=== PATIENT | female | born 1975 | race Hispanic/Latino ===

== ENCOUNTER 2017-03-30 10:43 | Inpatient (IN) | payer BC, OTHER ==
[2017-03-30] MEDS ORDERED: Penicillin G Potassium 5 MU in Sodium Chloride 0.9% 50 ML IVPB ONE (11:15)
[2017-03-30 11:17] VITALS: BMI 29.9
[2017-03-30] MEDS ORDERED: Penicillin G 5 Million Unit Vial IVPB ONE (11:26)
[2017-03-30] MEDS ORDERED: Oxytocin 30 units/LR 500ML 30 U/500 ML BAG IV ONE (11:30)
[2017-03-30] MEDS ORDERED: Lactated Ringer's 1,000 ML IV SCH (11:30)
[2017-03-30 11:38] LABS: BASO # 0.1 K/uL (0.0-0.2); BASO % 1.5 % (0.0-2.0); EOS % 0.4 % (0.0-4.0); HEMATOCRIT 32.4 % (34.0-47.0); LYMPH # 2.5 K/uL (1.0-4.3); MEAN CELL VOLUME 75.6 fl (81.0-99.0); MEAN CORPUSCULAR HEMOGLOBIN 24.1 pg (27.0-31.0); MEAN CORPUSCULAR HGB CONC 31.9 g/dL (33.0-37.0); MEAN PLATELET VOLUME 8.8 fl (7.2-11.7); MONO # 0.5 K/uL (0.0-0.8); MONO % 7.2 % (0.0-10.0); NEUT # 4.3 K/uL (1.8-7.0); NEUT % 57.9 % (50.0-75.0); NRBC % 0.1 % (0.0-0.0); RED CELL DISTRIBUTION WIDTH 16.4 % (11.5-14.5); WHITE BLOOD COUNT 7.5 K/uL (4.8-10.8)
[2017-03-30] MEDS ORDERED: Benzocaine/Menthol SPRAY TOP PRN (11:42)
[2017-03-30] MEDS ORDERED: Oxycodone/Acetaminophen 5/325 mg Tab PO PRN (11:42)
[2017-03-30 12:31] VITALS: RESP 18
--- NOTE | 2017-03-30 19:52 | OBADHP ---
Datetime: 03/30/2017 11:15 Admit Comment, IP Provider: IUP at term c/o CXT since 8am. No SROM. no VB. +FM PNC: Dr MENCHACA - chart rev'd GBS+ AMA - amnio normal PMH: matias PSH denies POBH: Spont ab x 1; 4th degree PGYNH: denie STD PSoH: debiues smoking ETHOH drugs A; IUP at term second stage of labor GBS+ AMA PLAN: admit to L_D IV PCN Observe labor progress Pelvic Type - PN: Adequate Extremities - PN: Normal Abdomen - PN: Normal Back - PN: Normal Breast - PN: Not Done Lungs - PN: Normal Heart - PN: Normal Thyroid - PN: Normal Neurologic - PN: Normal HEENT - PN: Normal General - PN: Normal Presentation-Admit: Vertex Membranes, Provider: Intact Comments, ACOG Physical Exam: qROS: General: no weakness; no fatigue HEENT: no LEE; no visual dist CV: no palpitations; no no CP GI: no N/V no diarhea : no F/U/D MS: No joint pain Pool Provider: Negative IP Hx Assessment: The History has been Reviewed and is Current Vital Signs Provider: Reviewed; Within Normal Limits IP Chief Complaint: Uterine contractions FHR Category Provider Fetus A: Category II (Annotations: Data stored by CPN on behalf of user) NICHD Decel Fetus A IP Provider: Early Dilatation, Provider: 10 Effacement, Provider: 100 Station, Provider: 1 Genitourinary Exam: Normal DTRs - PN: Normal IP Adm Impression: Term, intrauterine ; Active labor; Intact Membranes IP Admit Plan: Admit to unit; Initiate labor protocol
--- NOTE | 2017-03-30 19:52 | OBDS ---
DELIVERY PERSONNEL Delivery Doctor: Francisco Morris DO Model Maker Plastic: Paula Gavin RN MATERNAL INFORMATION Delivery Anesthesia: None Medications in Delivery: Pitocin Estimated Blood Loss (ml): 250 Placenta Cultured: No Maternal Complications: None Provider Comments: Over intact perineum, of live . No laceratoin noted. PEDS called for delivery. IV PCN was being hung when she pushed. Infant was crying spontaneously. Infant was plac ed on her chest after cord clamped and cut. 9,9 Placenta delivreed intact spontaneously. EBL 200cc LABOR SUMMARY EDC: 03/25/2017 00:00 No. Babies in Womb: 1 Attempted: No Labor Anesthesia: None LABOR INFORMATION Reason for Induction: Not Applicable Onset of Labor: 03/30/2017 08:00 Onset of Labor: 03/30/2017 09:00 Complete Dilatation: 03/30/2017 11:00 Oxytocin: N/A Group B Beta Strep: Positive Antibiotics # of Doses: 0 Antibiotics Time of Last Dose: not gven Steroids Given: None Reason Steroids Not Administered: Not Applicable Other Reason Not Administered: Not required MEMBRANES Membranes Rupture Method: Spontaneous Membranes Rupture Method: Spontaneous Rupture of Membranes: 03/30/2017 11:25 Rupture of Membranes: 03/30/2017 11:25 Length of Rupture (hrs): 0.08 Amniotic Fluid Color: Clear Amniotic Fluid Color: Clear Amniotic Fluid Amount: Moderate Amniotic Fluid Amount: Small Amniotic Fluid Odor: Normal Amniotic Fluid Odor: Normal STAGES OF LABOR Stage 1 hrs: 3 Stage 1 min: 0 Stage 2 hrs: 0 Stage 2 min: 30 Stage 3 hrs: 0 Stage 3 min: 5 Total Time in Labor hrs: 3 Total Time in Labor min: 35 VAGINAL DELIVERY Episiotomy: None Laceration Extension: N/A Laceration Type: None Laceration Repair: No Initial Vag Sponge Count: 0 Final Vag Sponge Count: 5 Initial Vag Sharps Count: 0 Final Vag Sharps Count: 5 Sponge Count Correct: Yes Sharps Count Correct: N/A Count Comment: 5 lap pads BABY A INFORMATION Infant Delivery Date/Time: 03/30/2017 11:30 Method of Delivery: Vaginal Born in Route : No : N/A Forceps: N/A Vacuum Extraction: N/A Shoulder Dystocia : Yes SHOULDER DYSTOCIA BABY A Delivery Date/Time: 03/30/2017 11:30 PRESENTATION/POSITION BABY A Presentation: Cephalic Cephalic Presentation: Vertex Vertex Position: Left Occipital Anterior Breech Presentation: N/A PLACENTA INFORMATION BABY A Placenta Delivery Time : 03/30/2017 11:35 Placenta Method of Delivery: Spontaneous Placenta Status: Delivered SCORES BABY A Heart Rate 1 min: >100 bpm Resp Effort 1 min: Good Cry Reflex Irritability 1 min: Cough or Sneeze or Pulls Away Muscle Tone 1 min: Active Motion Color 1 min: Body Pas[place]em[place], Extremities Blue Resuscitation Effort 1 min: N/A SCORE 1 MIN: 9 Heart Rate 5 min: >100 bpm Resp Effort 5 min: Good Cry Reflex Irritability 5 min: Cough or Sneeze or Pulls Away Muscle Tone 5 min: Active Motion Color 5 min: Completely Pasatiempo Resuscitation Effort 5 min: N/A SCORE 5 MIN: 10 INFANT INFORMATION BABY A Gestational Age at Delivery: 40.0 Gestational Status: Term Infant Outcome : Liveborn Infant Condition : Stable Sex: Male WEIGHT/LENGTH BABY A Birthweight (gms): 3825 Infant Weight (lb): 8 Weight (oz): 7 Length Inches: 20.00 Length cms: 50.8 CORD INFORMATION BABY A No. Cord Vessels: 3 Nuchal Cord : N/A Cord Blood Taken: No Suction: Mouth ASSESSMENT BABY A Complications: None Physical Findings at Delivery: Within Normal Limits Infant Respirations: Appears Normal Medical Claims Representative/ALS Called : No Care By: Dr Tariq Transferred To: Remains with Mother
--- NOTE | 2017-03-30 19:52 | OBDS ---
DELIVERY [employer]ERSONNEL Delivery Doctor: Francisco Morris DO Processing Archivist: Paula Gavin RN MATERNAL INFORMATION Delivery Anesthesia: None Medications in Delivery: Pitocin Estimated Blood Loss (ml): 250 Placenta Cultured: No Maternal Complications: None Provider Comments: Over intact perineum, of live . No laceratoin noted. PEDS called for delivery. IV PCN was being hung when she pushed. Infant was crying spontaneously. Infant was plac ed on her chest after cord clamped and cut. 9,9 Placenta delivreed intact spontaneously. EBL 200cc LABOR SUMMARY EDC: 03/25/2017 00:00 No. Babies in Womb: 1 Attempted: No Labor Anesthesia: None LABOR INFORMATION Reason for Induction: Not Applicable Onset of Labor: 03/30/2017 09:00 Complete Dilatation: 03/30/2017 11:00 Oxytocin: N/A Group B Beta Strep: Positive Antibiotics # of Doses: 0 Antibiotics Time of Last Dose: not gven Steroids Given: None Reason Steroids Not Administered: Not Applicable Other Reason Not Administered: Not required MEMBRANES Membranes Rupture Method: Spontaneous Rupture of Membranes: 03/30/2017 11:25 Length of Rupture (hrs): 0.08 Amniotic Fluid Color: Clear Amniotic Fluid Amount: Small Amniotic Fluid Odor: Normal STAGES OF LABOR Stage 1 hrs: 3 Stage 1 min: 0 Stage 2 hrs: 0 Stage 2 min: 30 Stage 3 hrs: 0 Stage 3 min: 5 Total Time in Labor hrs: 3 Total Time in Labor min: 35 VAGINAL DELIVERY Episiotomy: None Laceration Extension: N/A Laceration Type: None Laceration Repair: No Initial Vag Sponge Count: 0 Final Vag Sponge Count: 5 Initial Vag Sharps Count: 0 Final Vag Sharps Count: 5 Sponge Count Correct: Yes Sharps Count Correct: N/A Count Comment: 5 lap pads BABY A INFORMATION Infant Delivery Date/Time: 03/30/2017 11:30 Method of Delivery: Vaginal Born in Route : No : N/A Forceps: N/A Vacuum Extraction: N/A Shoulder Dystocia : Yes SHOULDER DYSTOCIA BABY A Infant Delivery Date/Time: 03/30/2017 11:30 PRESENTATION/POSITION BABY A Presentation: Cephalic Cephalic Presentation: Vertex Vertex Position: Left Occipital Anterior Breech Presentation: N/A PLACENTA INFORMATION BABY A Placenta Delivery Time : 03/30/2017 11:35 Placenta Method of Delivery: Spontaneous Placenta Status: Delivered SCORES BABY A Heart Rate 1 min: >100 bpm Resp Effort 1 min: Good Cry Reflex Irritability 1 min: Cough or Sneeze or Pulls Away Muscle Tone 1 min: Active Motion Color 1 min: Body [place], Extremities Blue Resuscitation Effort 1 min: N/A SCORE 1 MIN: 9 Heart Rate 5 min: >100 bpm Resp Effort 5 min: Good Cry Reflex Irritability 5 min: Cough or Sneeze or Pulls Away Muscle Tone 5 min: Active Motion Color 5 min: Completely Dur[place] Resuscitation Effort 5 min: N/A SCORE 5 MIN: 10 INFANT INFORMATION BABY A Gestational Age at Delivery: 40.0 Gestational Status: Term Infant Outcome : Liveborn Infant Condition : Stable Sex: Male WEIGHT/LENGTH BABY A Birthweight (gms): 3825 Infant Weight (lb): 8 Infant Weight (oz): 7 Infant Length Inches: 20.00 Length cms: 50.8 CORD INFORMATION BABY A No. Cord Vessels: 3 Nuchal Cord : N/A Cord Blood Taken: No Infant Suction: Mouth ASSESSMENT BABY A Complications: None Physical Findings at Delivery: Within Normal Limits Respirations: Appears Normal Weatherization Administrator/ALS Called : No Care By: Dr Tariq Transferred To: Remains with Mother
[2017-03-31 06:11] LABS: HEMATOCRIT 27.8 % (34.0-47.0); MEAN CELL VOLUME 76.3 fl (81.0-99.0); MEAN CORPUSCULAR HEMOGLOBIN 24.4 pg (27.0-31.0); MEAN CORPUSCULAR HGB CONC 31.9 g/dL (33.0-37.0); RED CELL DISTRIBUTION WIDTH 15.6 % (11.5-14.5); WHITE BLOOD COUNT 8.4 K/uL (4.8-10.8)
--- NOTE | 2017-03-31 11:08 | OBPPN ---
Datetime: 03/31/2017 11:05 PP Pain Prov: Within normal limits PP Nausea Prov: Denies PP Flatus Prov: Yes PP Breasts Prov: Not Done PP Heart Prov: Normal PP Lungs Prov: Normal PP Abdomen/Uterus Prov: Normal PP Lochia Prov: Not Done PP Vulva/Perineum Prov: Not Done PP CVA Tenderness Prov: Normal PP Extremities Prov: Normal PP C/S Incision Prov: Not Applicable PP Progress Prov: Normal PP Impression Prov: Normal progression PP Plan Prov: Continue present management PP Progress Note Prov: Patient doing well pain well controlled reports minimal lochia noted complain ts Vital signs stable afebrile Uterus firm below the umbilicus Extremities no Homans day #1 Ambulatory, regular diet, anticipate discharge in a.m. Informed consent was obtained for male circumcision discussed risks benefits alternatives to the p rocedure patient agrees to plan of care Vital Signs Provider PP: Reviewed
--- NOTE | 2017-04-01 07:56 | OBDCSUM ---
Datetime: 04/01/2017 07:54 Discharged to, Provider: Home Follow up at, Provider: Marlon Arriaga Instr Activity: Normal activity Disch Instr Diet: Regular Discharge Instructions, Provider: Routine instructions given Discharge Diagnosis, Provider: Term Delivered Follow up in weeks, Provider: 6 weeks Disch Referrals: None Contraception discussed, Prov: Yes Disch Activity Restrictions: Nothing in vagina - [place], tampons, douche Discharge Comment, Provider: Today for discharge Contraception after Delivery: Undecided
--- NOTE | 2017-04-01 07:56 | OBPPN ---
Datetime: 04/01/2017 07:53 PP Pain Prov: Within normal limits PP Nausea Prov: Denies PP Flatus Prov: Yes PP Breasts Prov: Not Done PP Heart Prov: Normal PP Lungs Prov: Normal PP Abdomen/Uterus Prov: Normal PP Lochia Prov: Not Done PP Vulva/Perineum Prov: Not Done PP CVA Tenderness Prov: Normal PP Extremities Prov: Normal PP Impression Prov: Normal progression PP Plan Prov: Discharge PP Progress Note Prov: Patient doing well no complaints minimal lochia discomfort well-controlled Vital signs stable afebrile Uterus firm below the umbilicus Extremities no Homans day #2 Discharge home, follow up with Elzbieta Crandall as needed Nothing per vagina Vital Signs Provider PP: Reviewed
[2017-04-01 16:44] VITALS: BP 119/82; PULSE 69; TEMP 98.2; O2SAT 100
== END 2017-04-01 12:00 | disposition home or self-care (01) | DRG 775 ==
LOC: H.EROB2 10:43 → H.L&D 11:17 → H.OB/GYN 14:10
PROVIDERS: ADMIT Obstetrics & Gynecology; ATTEND Obstetrics & Gynecology
PROC: 10E0XZZ Delivery of Products of Conception, External Approach (ICD-10-PCS; principal; 2017-03-30)
PROC: 4A1HXCZ Monitoring of Products of Conception, Cardiac Rate, External Approach (ICD-10-PCS; 2017-03-30)
DX: O66.0 Obstructed labor due to shoulder dystocia (principal); Z37.0 Single live birth; Z3A.40 40 weeks gestation of pregnancy